=== PATIENT | male | born 1975 | race Caucasian/White ===

== ENCOUNTER → 2016-09-24 | Outpatient (CLI) | payer BC ==
--- NOTE | 2016-09-24 12:22 | Diagnostic Imaging Report ---
PROCEDURE: MRI lumbar spine. TECHNIQUE: Multiplanar, multisequence MRI of the lumbar spine was performed without contrast. INDICATION: Back pain. Positive straight leg sign. FINDINGS: There is an old compression fracture of L1 vertebral body with 20% vertebral body height loss. The vertebral body heights otherwise are normal. There is satisfactory alignment at the posterior spinal line. There is disc desiccation and mild disc height loss at the L4-L5 level. There is no significant marrow signal abnormality. The cauda equina and conus medullaris appear grossly unremarkable. T12-L1: No disc herniation, no spinal canal or foraminal stenosis. L1-L2: There is no disc herniation, no spinal canal or foraminal stenosis. L2-L3: No disc herniation, no spinal canal or foraminal stenosis. L3-L4: No disc herniation, no spinal canal or foraminal stenosis. There is mild facet and ligamentous hypertrophy seen at this level. L4-L5: There is a diffuse disc bulge and mild facet and ligamentous hypertrophy. There is no central canal stenosis. There is bilateral narrowing of the lateral recess of moderate degree abutting the descending L5 nerve roots. There is also bilateral foraminal stenosis, [id number] on the left and moderate on the right side. L5-S1: There is no significant disc herniation. There is mild facet arthropathy more on the left side. There is no central canal stenosis. There is mild narrowing of the left lateral recess. The right lateral recess is patent. The foramina are patent. IMPRESSION: Bilateral moderate stenosis of the lateral recess at L4-L5 abutting the descending L5 nerve roots bilaterally. There is also bilateral foraminal stenosis more prominent on the right side at this level. Dictated by: Dictated on workstation # [id number]
== END ==
LOC: RAD 07:18
PROVIDERS: ATTEND Family Medicine
DX: M54.41 Lumbago with sciatica, right side (principal); M48.06 Spinal stenosis, lumbar region
CPT/HCPCS: 72148

== ENCOUNTER → 2017-04-01 | Outpatient (CLI) | payer BC ==
--- NOTE | 2017-04-01 11:51 | Diagnostic Imaging Report ---
PROCEDURE: MR imaging cervical spine without contrast. TECHNIQUE: Multiplanar, multisequence MR imaging of the cervical spine was performed without contrast. INDICATION: Neck pain. Right arm and shoulder pain. FINDINGS: The alignment of the cervical spine is satisfactory. The vertebral body heights are preserved. There is disc desiccation at all levels. There is mild disc height loss at C5/6 and C6/ 7. There is overall normal matter signal seen. The spinal cord is normal in caliber, contour and signal. The foramen magnum and upper cervical canal are widely patent. C2/3: There is no disc herniation, no spinal canal or foramina stenosis. C3/4: There is no disc herniation, no spinal canal or foramina stenosis. C4/5: There is no disc herniation, no spinal canal or foramina stenosis. C5/6: There is a spur disc complex with no spinal canal stenosis or cord compression. There is uncovertebral and facet joint hypertrophy more on the left side associated with moderate to severe stenosis on the left and mild stenosis on the right side. C6-7: There is a disc spur complex without significant spinal canal stenosis or cord compression. There is bilateral moderate to severe foramina stenosis. C7/T1: There is spur disc complex with no spinal canal or cord compression. There is a moderate foramina stenosis on the left and no foramina stenosis on the right side. IMPRESSION: There is mild disc disease with no spinal canal stenosis or cord compression at any level. There is however uncovertebral and facet hypertrophy resulting in mid to lower cervical spine foramina stenosis worse on the left side. Dictated by: Dictated on workstation # [id number]
--- NOTE | 2017-04-01 12:12 | Diagnostic Imaging Report ---
PROCEDURE: MRI right joint upper extremity without contrast. TECHNIQUE: Multiplanar, multisequence non contrast-enhanced MRI of the right upper extremity was accomplished. INDICATION: Right shoulder pain. FINDINGS: There is no os acromiale or Hill-Sachs deformity. There is distention of the subacromial subdeltoid bursa with debris seen. This does not appear to related to a full-thickness tear of the rotator cuff and is suggestive of bursitis. There is tendinosis and low-grade intrasubstance tear in the supraspinatus and to lesser extent in the infraspinatus tendons. No high-grade or full-thickness tear. The subscapular tendon appears intact. The long head biceps tendon is within its groove. There is a minimal glenohumeral joint effusion. The labrum is grossly unremarkable. The acromioclavicular joint demonstrates no significant degenerative changes or osteophyte formation. The muscle bulk and signal around the shoulder appear unremarkable. IMPRESSION: 1. There is tendinosis and low-grade intrasubstance tears in the supraspinatus and infraspinatus tendons. 2. Moderate distention of the subacromial subdeltoid bursa with internal debris suggestive of bursitis. Old hemorrhage into the bursa from trauma is less likely. Correlate clinically. Dictated by: Dictated on workstation # [id number]
== END ==
LOC: RAD 11:00
PROVIDERS: ATTEND Family Medicine
DX: M75.111 Incomplete rotator cuff tear or rupture of right shoulder, not specified as traumatic (principal); M48.02 Spinal stenosis, cervical region
CPT/HCPCS: 72141; 73221

== ENCOUNTER 2017-05-18 08:45 | Outpatient (RCR) | payer BC | END 2017-06-03 12:08 | disposition home or self-care (01) | PROVIDERS: ATTEND Orthopaedic Surgery | DX: M25.511 Pain in right shoulder (principal); M48.02 Spinal stenosis, cervical region ==

== ENCOUNTER 2017-08-15 15:27 | Outpatient (RCR) | payer BC | END 2017-08-18 10:37 | disposition home or self-care (01) | PROVIDERS: ATTEND Orthopaedic Surgery | DX: Z47.89 Encounter for other orthopedic aftercare (principal) ==

== ENCOUNTER → 2017-11-23 | Outpatient (REF) ==
--- NOTE | 2017-11-23 15:55 | Diagnostic Imaging Report ---
INDICATION: Pre-MRI screening. TIME OF EXAM: 3:55 p.m. FINDINGS: Two views of the orbits were obtained. No radiopaque orbital foreign body is identified. IMPRESSION: No radiopaque orbital foreign body is identified. Dictated by: Dictated on workstation # [id number]
--- NOTE | 2017-11-23 17:00 | Diagnostic Imaging Report ---
EXAMINATION: Magnetic resonance imaging of the left wrist without contrast. DATE: November 23, 2017. COMPARISON: Left wrist radiographs November 16, 2017. INDICATION: 42-year-old male, fall. Shooting pain and tingling extending from the wrist to the fingertips. TECHNIQUE: Magnetic Resonance Imaging sequences were performed of the wrist without contrast. FINDINGS: TRIANGULAR FIBROCARTILAGE COMPLEX: There is a multiloculated ganglion cyst adjacent to the ulnar aspect of the triangular fibrocartilage complex measuring 17 x 10 x 21 mm in size. There is no discretely identified tear of the triangular fibrocartilage complex on non-arthrogram evaluation. There is very minimal fluid within the distal radioulnar joint which is likely within normal limits. INTRINSIC LIGAMENTS: The scapholunate and lunotriquetral ligaments are grossly intact. JOINTS: There is no joint effusion. There are mild degenerative changes at the triscaphe articulation and moderate degenerative changes at the first carpometacarpal joint. CARPAL TUNNEL: There is abnormal signal throughout the carpal tunnel surrounding the flexor tendons. The median nerve is not grossly enlarged or increased in signal. FLEXOR TENDONS: There is extension of the fluid surrounding the flexor tendons within the carpal tunnel proximal and distal to the carpal tunnel along at least a short distance along the imaged portions. This is compatible with tenosynovitis and/or tenosynovitis-like process (technically no tendon sheath at the level of the carpal tunnel). There is no identified flexor tendon tear. EXTENSOR TENDONS: There is no fluid extending within the tendon sheath of the extensor carpi ulnaris tendon. The additional extensor tendons are also intact. BONE: The bones all have normal configuration. The bone marrow signal is within normal limits. Specifically, negative for fracture, osteomyelitis, osteonecrosis, or marrow replacing process. BURSAE AND SOFT TISSUES: The bursae and soft tissues surrounding the wrist are within normal limits. IMPRESSION: 1. Large multiloculated ganglion cyst adjacent to the ulnar aspect of the triangular fibrocartilage complex without discretely identified tear of the triangular fibrocartilage complex on non-arthrogram evaluation. 2. Abnormal fluid within the tendon sheaths of multiple flexor tendons and throughout the carpal tunnel compatible with multifocal tenosynovitis and tenosynovitis-like process at the level of the carpal tunnel. 3. Although the median nerve is not grossly enlarged or increased in signal on exam, particularly given the findings within the carpal tunnel, correlation for symptoms of median neuritis is recommended. 4. No acute fracture or bone contusion. No evidence of osteonecrosis. Dictated by: Dictated on workstation # [id number]
== END | disposition home or self-care (01) ==
LOC: RAD 15:22
PROVIDERS: ATTEND Nurse Practitioner Family
CPT/HCPCS: 70250; 73221

== ENCOUNTER 2018-08-18 07:09 | Emergency (ER) | payer BC ==
[~2018-08-18] VITALS: Ht 180.3 cm; Wt 88.5 kg
[2018-08-18] MEDS ORDERED: predniSONE 20 MG TAB PO ONE (08:15)
--- NOTE | 2018-08-18 08:18 | ED Upper Extremity ---
General Chief Complaint: Upper Extremity Stated Complaint: LEFT ARM NUMB Nursing Triage Note: Pt ambulated to rm 5. Pt reports having stenosis in neck and spine, and c/o L arm pain that has worsened over the last 5 days. Pt reports pain that begins in the neck and radiates down the arm, with finger numbness and elbow twitching. Pt reports taking gabapentin, meloxicam, flexeril, percocet and IBU with no relief. Pt reports taking Percocet 10/325 at 0430 and IBU 600 mg at 0630. Nursing Sepsis Screen: No Definite Risk Source: patient Exam Limitations: no limitations History of Present Illness Date Seen by Provider: Aug 18, 2018 Time Seen by Provider: 07:50 Initial Comments Here with report of having left neck and arm pain with pain radiating down to his hand. Has history of stenosis of the neck as well as a left shoulder injury. His home medicines are not working currently. Denies any recent injury. Has follow-up with pain management on September 06 for neck injection. Onset: other (several days) Severity: moderate Pain/Injury Location: left arm Method of Injury: unknown Modifying Factors: Improves With Immobilization; Worse With Movement; Improves With Pain Medication Allergies and Home Medications Allergies Coded Allergies: Penicillins (Verified Allergy, Unknown, 08/18/18) Patient Home Medication List Home Medication List Reviewed: Yes Review of Systems Constitutional: see HPI; No chills, No fever Respiratory: no symptoms reported Cardiovascular: no symptoms reported Gastrointestinal: No nausea, No vomiting Musculoskeletal: No back pain; muscle pain, muscle stiffness, muscle cramps, neck pain Skin: No change in color, No dryness Psychiatric/Neurological: Paresthesia (left index finger); Denies Weakness All Other Systems Reviewed Negative Unless Noted: Yes Past Jlshvop-Yyaiie-Lzslga Hx Past Med/Social Hx: Reviewed Nursing Past Med/Soc Hx Patient Social History Alcohol Use: Occasionally Uses Recreational Drug Use: Yes Drug of Choice: marijuana Smoking Status: Current Everyday Smoker Type Used: Cigarettes 2nd Hand Smoke Exposure: Yes Recent Foreign Travel: No Contact w/Someone Who Travel: No Recent Infectious Disease Expo: No Recent Hopitalizations: No Past Medical History Surgeries: Yes Orthopedic Respiratory: No Cardiac: No Neurological: No Genitourinary: No Gastrointestinal: No Musculoskeletal: Yes (stenosis, carpel tunnel) HEENT: No Cancer: No Psychosocial: No Integumentary: No Blood Disorders: No Family Medical History Reviewed Nursing Family Hx Physical Exam Vital Signs Vital Signs - First Documented 08/18/18 07:24 Temp 99.4 Pulse 90 Resp 13 B/P (MAP) 147/97 (114) Pulse Ox 99 O2 Delivery Room Air Capillary Refill : Less Than 3 Seconds Height, Weight, BMI Height: 5'11.00" Weight: 195lbs. oz. [id number]; BMI Method:Stated General Appearance: WD/WN, no apparent distress Neck: limited range of motion, tender lateral (left side); No tender midline Cardiovascular: regular rate, rhythm, no murmur Respiratory: lungs clear, normal breath sounds Back: normal inspection, no CVA tenderness, no vertebral tenderness Shoulder: limited ROM (pain on the left), pain (with range of motion) Hand: normal ROM, Bilateral Neurologic/Psychiatric: no motor/sensory deficits, alert, oriented x 3 Skin: normal color, warm/dry Progress/Results/Core Measures Results/Orders My Orders Orders - GAIL FERNANDEZ MD Prednisone Tablet (Deltasone Tablet) (08/18/18 08:15) Medications Given in ED Current Medications Medications Dose Ordered Sig/Antonietta Route Start Time Stop Time Status Last Admin Dose Admin Prednisone 60 mg ONCE ONCE PO 08/18/18 08:15 08/18/18 08:16 DC 08/18/18 08:10 60 MG Vital Signs/I&O 08/18/18 07:24 Temp 99.4 Pulse 90 Resp 13 B/P (MAP) 147/97 (114) Pulse Ox 99 O2 Delivery Room Air Blood Pressure Mean: 114 Progress Progress Note : Progress Note Seen and evaluated. Prednisone 60 mg by mouth. We will try outpatient therapy with prednisone for 6 more days. I will write additional prescription for Percocet for a few days. Discharged home with return precautions. Patient verbalize understanding instructions and agreement with plan. Departure Impression Primary Impression: Cervical radiculopathy, acute Disposition: 01 HOME, SELF-CARE Condition: Stable Departure-Patient Inst. Decision time for Depature: 08:23 Referrals: MANJULA COBB DO (PCP) Primary Care Physician Patient Instructions: Radiculopathy (DC), [employer] Elbow (DC) Add. Discharge Instructions: All discharge instructions reviewed with patient and/or family. Voiced understanding. Follow-up with your oil painter as scheduled. Take medications as directed. Return for worse pain, fever, vomiting, weakness, breathing problems or other concerns as needed. Scripts Prednisone (Prednisone) 20 Mg Tab 40 MG PO DAILY, #10 TAB 0 Refills Prov: GAIL FERNANDEZ MD 08/18/18 Oxycodone HCl/Acetaminophen (Oxycodone-Acetaminophen 10-325) 1 Each Tablet 1 EACH PO Q6H PRN for PAIN-MODERATE MDD 3, #12 TAB 0 Refills Prov: GAIL FERNANDEZ MD 08/18/18 Work/School Note: Work Release Form Date Seen in the Emergency Department: Aug 18, 2018 Return to Work: Aug 19, 2018 Restrictions: No Restrictions GAIL FERNANDEZ MD Aug 18, 2018 08:18
[2018-08-18] MEDS ORDERED: OXYC-465 PO (08:28)
[2018-08-18] MEDS ORDERED: PRD20T PO (08:28)
[2018-08-18 08:32] VITALS: BP 147/97
== END 2018-08-18 08:32 | disposition home or self-care (01) ==
LOC: EDUNIT# 07:09 → ER 07:10
DX: M54.12 Radiculopathy, cervical region (principal); F12.10 Cannabis abuse, uncomplicated; F17.210 Nicotine dependence, cigarettes, uncomplicated; Z88.0 Allergy status to penicillin
CPT/HCPCS: 99283

== ENCOUNTER 2020-03-03 05:01 | Emergency (ER) | payer BC, OTHER ==
[~2020-03-03] VITALS: Ht 180 cm; Wt 90.7 kg
[~2020-03-03 05:01] MED LIST: OXYC-465 PO; PRD20T PO
[2020-03-03] MEDS ORDERED: TETANUS,DIPTH,PERTUSS P/F (BOOSTRIX) 0.5 ML VIAL IM ONE (05:15)
--- NOTE | 2020-03-03 05:17 | ED Lower Extremity ---
General Stated Complaint: R FOOT PAIN, R FOOT LAC Source: patient History of Present Illness Date Seen by Provider: Mar 03, 2020 Time Seen by Provider: 05:05 Initial Comments PT ARRIVES VIA POV--DROVE HIMSELF HERE, WANTS WHEELCHAIR ON ARRIVAL C/O RIGHT FOOT INJURY YESTERDAY AROUND 1800 YESTERDAY STATES HE WAS WEARING SLIDE-TYPE SANDALS AND WAS WORKING ON A [employer] AND WAS ON A LADDER AND HIS FOOT SLIPPED AND HE "LANDED ON SOMETHING" AND CUT AND INJURED HIS RIGHT FOOT, IN ARCH OF FOOT. MUCH LATER INTO ER VISIT, PT STATES HE WAS 6 TO 10 FEET UP ON THE LADDER, WHEN HE FELL OFF, FALLING TO THE SIDE, AND LANDING ON HIS RIGHT FOOT. STATES HE DOES NOT KNOW WHAT HE LANDED ON OR WHAT HE INJURED HIMSELF ON STATES HE TOOK 1 IBUPROFEN AND IT DIDN'T HELP, SO HE DIDN'T TAKE ANY MORE STATES HE DRANK "3 BEERS" AFTERWARD "TO KILL THE PAIN" DENIES ANY OTHER INJURIES NO NECK OR BACK PAIN LAST TETANUS VACCINE 2002 Allergies and Home Medications Allergies Coded Allergies: Penicillins (Verified Allergy, Unknown, 08/18/18) Home Medications Hydrocodone/Acetaminophen 1 Each Tablet, 1 EACH PO Q4-6 HOURS PRN for PAIN Prescribed by: BONIFACIO ARZOLA on 03/03/20643 Mupirocin 22 Gm Oint...g., 22 GM TP BID Prescribed by: BONIFACIO ARZOLA on 03/03/20643 Sulfamethoxazole/Trimethoprim 1 Each Tablet, 1 EACH PO BID Prescribed by: BONIFACIO ARZOLA on 03/03/20643 Patient Home Medication List Home Medication List Reviewed: Yes Review of Systems Constitutional: no symptoms reported Musculoskeletal: see HPI Skin: see HPI Psychiatric/Neurological: No Symptoms Reported Past Quuovah-Twpagv-Dtwhwu Hx Patient Social History Alcohol Use: Regular Use Recreational Drug Use: Yes (THC) Drug of Choice: marijuana Smoking Status: Current Everyday Smoker (1/2 PPD) Type Used: Cigarettes 2nd Hand Smoke Exposure: Yes Recent Foreign Travel: No Contact w/Someone Who Travel: No Recent Hopitalizations: No Immunizations Up To Date Tetanus Booster (TDap): More than 5yrs Past Medical History Surgeries: Yes (BILAT INGUINAL HERNIA; BILAT CARPAL TUNNEL; R SHOULDER SURGERY) Abdominal, Orthopedic Respiratory: No Cardiac: No Neurological: No Genitourinary: No Gastrointestinal: Yes Abdominal Hernia (BILAT INGUINAL HERNIA REPAIR) Musculoskeletal: Yes (BILAT CARPAL TUNNEL; R SHOULDER SURGERY) Endocrine: No HEENT: No Cancer: No Psychosocial: No Integumentary: No Blood Disorders: No Physical Exam Vital Signs Vital Signs - First Documented 03/03/20 05:08 Temp 36.7 Pulse 101 Resp 20 B/P (MAP) 127/113 (118) O2 Delivery Room Air Capillary Refill : Height, Weight, BMI Height: 5'11.00" Weight: 195lbs. oz. 88.596307zv; BMI Method:Stated General Appearance: WD/WN, no apparent distress, other (ANXIOUS, TALKS NON- STOP, LOUDLY, AT LENGTH. + ODOR OF ETOH) Feet: right foot other (PLANTAR ASPECT OF MID FOOT/ARCH OF RIGHT FOOT WITH 1 1/2 CM LACERATION, NO ACTIVE BLEEDING, MILD SWELLING AROUND THE AREA. MARKED TENDRNESS TO AREA. MOTOR/SENSORY/VASCULAR INTACT. ) Neurologic/Tendon: normal sensation, normal motor functions, normal tendon functions Neurologic/Psychiatric: no motor/sensory deficits, alert, oriented x 3 Skin: normal color, warm/dry, tattoos/piercings, other ( ABOVE) Procedures/Interventions Splinting and Joint Reduction : Ector wrap: Yes Immobilizers: Step Light Walker s/m/lg Ordered: Crutches Progress/Results/Core Measures Results/Orders My Orders Orders - BONIFACIO ARZOLA DO Foot, Right, 3 View (03/03/20 05:10) Dipht,Pertuss(Acell),Tet Adult (Boostrix (03/03/20 05:15) Ct Extremity Lower Right Wo (03/03/20 05:36) Ketorolac Injection (Toradol Injection) (03/03/20 05:45) Sulfamethoxazole/Trimet Ds Tab (Bactrim (03/03/20 05:45) Hydrocodone/Apap 10/325 Tablet (Lortab 1 (03/03/20 06:45) Ector Bandage (03/03/20 06:37) Crutches (03/03/20 06:37) Wound Dressing-Ed (03/03/20 06:37) Steplite (03/03/20 06:37) Rx-Mupirocin 2% Oint (Rx-Bactroban) (03/03/20 06:37) Medications Given in ED Current Medications Medications Dose Ordered Sig/Antonietta Route Start Time Stop Time Status Last Admin Dose Admin Acetaminophen/ Hydrocodone Bitart 1 ea ONCE ONCE PO 03/03/20 06:45 03/03/20 06:46 03/03/20 06:44 1 EA Diphtheria/ Tetanus/Acell Pertussis 0.5 ml ONCE ONCE IM 03/03/20 05:15 03/03/20 05:16 DC 03/03/20 05:33 0.5 ML Ketorolac Tromethamine 60 mg ONCE ONCE IM 03/03/20 05:45 03/03/20 05:46 DC 03/03/20 06:08 60 MG Trimethoprim/ Sulfamethoxazole 1 ea ONCE ONCE PO 03/03/20 05:45 03/03/20 05:46 DC 03/03/20 06:07 1 EA Vital Signs/I&O 03/03/20 05:08 Temp 36.7 Pulse 101 Resp 20 B/P (MAP) 127/113 (118) O2 Delivery Room Air Progress Progress Note : Progress Note WOUND IS NEARLY 12 HOURS OLD, NOT BLEEDING OR GAPING. WOUND NOT SUTURED. WOUND CLEANSED AND DRESSED Diagnostic Imaging Comments XRAYS RIGHT FOOT--NO FOREIGN BODY, ? TARSAL BONE FRACTURES? --PENDING RADIOLOGIST REVIEW. WILL OBTAIN CT CT RIGHT FOOT--MILDLY COMMINUTED CHIP FRACTURE OF MEDIAL CUNEIFORM, PER [facility] VIA FAX AT 0635 Reviewed: Reviewed by Me Departure Impression Primary Impression: Fracture of right foot Additional Impressions: Laceration of right foot Vsmbpbmcke-mdmerganv-cevtnhk (DPT) vaccination administered at current visit Disposition: 01 HOME, SELF-CARE Condition: Stable Departure-Patient Inst. Referrals: NO,LOCAL PHYSICIAN (PCP) Primary Care Physician AYAKA MAURO MD Patient Instructions: Diphtheria and Tetanus Toxoids, and Acellular Pertussis Vaccine, Foot Fracture (DC), Going Up and Down Curbs or Stairs With a Walker or Crutches, How to Use Crutches, Walking Boot, Wound Care (DC) Add. Discharge Instructions: CLEAN WOUND TWICE A DAY WITH ANTIBACTERIAL SOAP AND WATER, APPLY ANTIBIOTIC OINTMENT AND FRESH DRESSING TWICE A DAY ECTOR WRAP, BOOT AND CRUTCHES AT ALL TIMES--NO WEIGHT BEARING ICE TO AREA AT 20 MINUTE INTERVALS ELEVATE FOOT MUCH POSSIBLE FOLLOW UP WITH DR. MAURO, ORTHOPEDIC SURGEON, IN 2-3 DAYS FOR FURTHER CARE Scripts Mupirocin (Mupirocin) 22 Gm Oint...g. 22 GM TP BID, #1 TUBE Prov: BONIFACIO ARZOLA DO 03/03/20 Hydrocodone/Acetaminophen (Hydrocodone-Acetamin 5-325 mg) 1 Each Tablet 1 EACH PO Q4-6 HOURS PRN for PAIN, #20 TAB Prov: BONIFACIO ARZOLA DO 03/03/20 Sulfamethoxazole/Trimethoprim (Bactrim Ds Tablet) 1 Each Tablet 1 EACH PO BID, #20 TAB Prov: BONIFACIO ARZOLA DO 03/03/20 BONIFACIO ARZOLA DO Mar 03, 2020 05:17
[2020-03-03] MEDS ORDERED: KETOROLAC 60 MG/2 ML VIAL IM ONE (05:45)
[2020-03-03] MEDS ORDERED: TRIM/SULFAMETH 160/800 (SEPTRA DS) TAB PO ONE (05:45)
[2020-03-03] MEDS ORDERED: RX-MUPIROCIN (BACTROBAN) 2% OINT 22 GM TUBE TOP STA (06:37)
[2020-03-03] MEDS ORDERED: HYDR-83 PO (06:44)
[2020-03-03] MEDS ORDERED: MUPI22OI2 TP (06:44)
[2020-03-03] MEDS ORDERED: SULF1TAB35 PO (06:44)
[2020-03-03] MEDS ORDERED: HYDROcodone/APAP 10 MG/325 MG (LORTAB) TAB PO ONE (06:45)
--- NOTE | 2020-03-03 06:59 | Diagnostic Imaging Report ---
INDICATION: Laceration. Some irregularities across the 1st tarsometatarsal joint. This is better characterized on separately performed CT. Longitudinal lucency through the medial aspect of the navicular bone is shown to be unremarkable at CT likely prominent vascular groove. No dislocation. No other significant finding. IMPRESSION: Fracture to the intra-articular portion of the medial cuneiform much better visualized on a separately performed CT. Lucency in the tarsal navicular shown to be intact at CT. No other significant finding. Dictated by: Dictated on workstation # [id number]
--- NOTE | 2020-03-03 07:08 | Diagnostic Imaging Report ---
PROCEDURE: CT right lower extremity without contrast. TECHNIQUE: Axially acquired CT was obtained through the right lower extremity without intravenous contrast. Coronal and sagittal reformations were also performed. Auto Exposure Controls were utilized during the CT exam to meet ALARA standards for radiation dose reduction. INDICATION: Fall with lacerations and hematoma. FINDINGS: Along the plantar aspect of the medial margin of the distal portion of the medial cuneiform there is a mildly comminuted fracture likely extending into the inferomedial aspect of the 1st tarsometatarsal joint. The 1st metatarsal base itself appeared intact and there was no dislocation. The intermediate and lateral cuneiforms are intact. The navicular intact. The talus intact. No dislocation across the Lisfranc joints. The metatarsals intact and the visualized proximal phalanges intact. No calcaneal fracture deformity. The anterior and posterior subtalar joints are maintained. Calcaneal cuboid joint normal. The medial, lateral, and posterior malleoli intact. The plafond and talar dome intact. IMPRESSION: Minimally comminuted fractures involve the medial and plantar aspect of the distal medial cuneiform involving the medial margin of that the tarsometatarsal joint. Intact 1st metatarsal. The remaining tarsometatarsal articulations and alignment were normal. The remaining hind, mid and visualized forefoot structures intact. No other fracture apparent. Dictated by: Dictated on workstation # [id number]
[2020-03-03 07:33] VITALS: BP 125/98
== END 2020-03-03 07:33 | disposition home or self-care (01) ==
LOC: EDUNIT# 05:01 → ER 05:03
DX: S91.311A Laceration without foreign body, right foot, initial encounter (principal); S92.241A Displaced fracture of medial cuneiform of right foot, initial encounter for closed fracture; F17.210 Nicotine dependence, cigarettes, uncomplicated; W11.XXXA Fall on and from ladder, initial encounter; Z23 Encounter for immunization; Z88.0 Allergy status to penicillin
CPT/HCPCS: 73630; 73700; 90471; 90715; 96372

== ENCOUNTER → 2020-03-17 | Outpatient (CLI) | payer OTHER ==
[~2020-03-17] MED LIST changes: +HYDR-83 PO; +MUPI22OI2 TP; +SULF1TAB35 PO
--- NOTE | 2020-03-17 09:19 | Diagnostic Imaging Report ---
INDICATION: Fracture, follow-up. TECHNIQUE: 3 views of the right foot CORRELATION STUDY: 03/03/2020 FINDINGS: Previous CT imaging demonstrated a very small area of fracture along the medial and plantar aspect of the distal medial cuneiform. On follow-up radiographs, there is suggestion of slight distortion of the 7th portion of the neck cuneiform. The fracture lines cannot be well visualized and/or delineated. Likely owing to some degree of bony resorption. A new acute bony abnormality is not suggested. Alignment of the osseous structures appears to be near-anatomic. IMPRESSION: 1. The known fracture along the cortical margins of the medial plantar aspect of the distal medial cuneiform not well appreciated on this radiograph. Perhaps some bony resorption likely reflecting a healing changes in this area. No new bony abnormality. Dictated by: Dictated on workstation # [id number]
== END ==
LOC: ORTHO 08:30
PROVIDERS: ATTEND Orthopaedic Surgery
DX: S92.244D Nondisplaced fracture of medial cuneiform of right foot, subsequent encounter for fracture with routine healing (principal)
CPT/HCPCS: 73630; G0463; 99203

== ENCOUNTER → 2020-03-31 | Outpatient (CLI) | payer OTHER ==
[~2020-03-31] MED LIST changes: +HYDR-3812 PO; -HYDR-83 PO
--- NOTE | 2020-03-31 08:53 | Diagnostic Imaging Report ---
INDICATION: Followup fracture of medial cuneiform. TIME OF EXAM: 8:41 AM Correlation is made with prior exam from 03/17/2020. The fracture through the medial aspect of the medial cuneiform best seen on CT study from 03/03/2020 is not well visualized by plain film. There is a lucency on the AP view of the region of the navicular. This is not identified on the oblique or lateral view but is suspicious for small subtle fracture. No other fractures are seen. Metatarsals are intact. Cuboid and calcaneus are intact. IMPRESSION: Medial cuneiform fracture is not well-visualized on today's study. There is a lucency in the region of the navicular, indeterminate. Correlation to pain at this location is recommended. Continued followup could be performed. A fracture at this location cannot be entirely excluded. Dictated by: Dictated on workstation # [id number]
== END ==
LOC: ORTHO 08:24
PROVIDERS: ATTEND Orthopaedic Surgery
DX: S92.244D Nondisplaced fracture of medial cuneiform of right foot, subsequent encounter for fracture with routine healing (principal)
CPT/HCPCS: 73630